=== PATIENT | female | born 1950 | race Caucasian/White ===

== ENCOUNTER → 2024-10-04 09:09 | Outpatient (REF) | payer MEDICARE, OTHER, SELFPAY | LOC: WDC 09:09 | PROVIDERS: ATTENDING PHYSICIAN Obstetrics & Gynecology; FAMILY PHYSICIAN Family Medicine | DX: R92.8 Other abnormal and inconclusive findings on diagnostic imaging of breast (principal); N63.11 Unspecified lump in the right breast, upper outer quadrant | CPT/HCPCS: 76642; 77062; 77066 ==

== ENCOUNTER → 2024-12-31 09:26 | Outpatient (REF) | payer MEDICARE, OTHER, SELFPAY | LOC: RAD 09:26 | PROVIDERS: ATTENDING PHYSICIAN Family Medicine | DX: Z13.820 Encounter for screening for osteoporosis (principal); Z78.0 Asymptomatic menopausal state | CPT/HCPCS: 77080 ==